=== PATIENT | male | born 2000 | race Caucasian/White ===

== ENCOUNTER 2020-02-07 04:38 | Emergency (ER) | payer SELFPAY ==
[~2020-02-07] VITALS: Ht 177.8 cm; Wt 125.0 kg
--- NOTE | 2020-02-07 05:01 | PHYS DOC ---
Past Medical History Past Medical History: No Pertinent History Past Surgical History: No Surgical History Smoking Status: Never Smoker Alcohol Use: None General Adult EDM: Chief Complaint: ABDOMINAL PAIN HPI: HPI: 19-year-old male presents [facility] department complaints of abdominal pain. Describes the pain is constant, lower abdomen and left lower quadrant. He denies any fever, nausea, vomiting. He states the pain started a couple days ago he has not had a good bowel movement x2 days. He states he tried tonight with small amounts. He did try MiraLAX [id number] x1 time however has had no relief. Nothing makes his pain worse, nothing makes his pain better. Patient has no underlying past medical history, no surgical history. He describes the pain as achy Review of Systems: Review of Systems: Constitutional: Denies fever or chills. [] Respiratory: Denies cough or shortness of breath. [] Cardiovascular: Denies chest pain or edema. [] GI: abdominal pain, no nausea, vomiting, bloody stools or diarrhea. [] Musculoskeletal: Denies back pain or joint pain. [] Neurologic: Denies headache, focal weakness or sensory changes. [] Heart Score: Risk Factors: Risk Factors: DM, Current or recent (<one month) smoker, HTN, HLP, family history of CAD, obesity. Risk Scores: Score 0 - 3: 2.5% MACE over next 6 weeks - Discharge Home Score 4 - 6: 20.3% MACE over next 6 weeks - Admit for Clinical Observation Score 7 - 10: 72.7% MACE over next 6 weeks - Early Invasive Strategies Physical Exam: PE: Constitutional: Well developed, well nourished, no acute distress, non-toxic appearance. [] Cardiovascular:Heart rate regular rhythm, no murmur [] Lungs & Thorax: Bilateral breath sounds clear to auscultation [] Abdomen: Bowel sounds normal, soft, TTP LLQ, no masses, no pulsatile masses. [] Skin: Warm, dry, no erythema, no rash. [] Extremities: No tenderness, no edema. [] Neurologic: Alert and oriented X 3, no focal deficits noted. [] Psychologic: Affect normal, judgement normal, mood normal. [] Current Patient Data: Vital Signs: Vital Signs Date Time Temp Pulse Resp B/P (MAP) Pulse Ox O2 Delivery O2 Flow Rate FiO2 02/07/20 04:49 97.8 97 20 163/74 (103) 97 Room Air 97.8 EKG: EKG: [] Radiology/Procedures: Radiology/Procedures: [] Course & Med Decision Making: Course & Med Decision Making Pertinent Labs and Imaging studies reviewed. (See chart for details) []19-year-old male presents emerge department complaints of abdominal pain. Describes the pain is constant, lower abdomen and left lower quadrant. He denies any fever, nausea, vomiting. He states the pain started a couple days ago he has not had a good bowel movement x2 days. He states he tried tonight with small amounts. He did try MiraLAX [id number] x1 time however has had no relief. Nothing makes his pain worse, nothing makes his pain better. Patient has no underlying past medical history, no surgical history. He describes the pain as achy. Labs/imaging reviewed + stool/constipation No acute findings with labs Recommend bentyl as prescribed Miralax BID until routine BM, hold for diarrhea DC home Dragon Disclaimer: Cardia Disclaimer: This electronic medical record was generated, in whole or in part, using a voice recognition dictation system. Departure Departure Impression: Primary Impression: Constipation Qualified Codes: K59.00 - Constipation, unspecified Disposition: HOME, SELF-CARE Condition: STABLE Referrals: NO PCP (PCP) Patient Instructions: Constipation, Adult, [id number] Additional Instructions: KUB with evidence of stool/constipation No acute lab findings Recommend bentyl as prescribed for pain Miralax BID until routine BM Return to the ER with worsening pain, fever, nausea with vomiting, inability to have BM Scripts Dicyclomine Hcl (DICYCLOMINE HCL) 10 Mg Capsule 1 CAP PO TID for 5 Days, #15 CAP 11 Refills Prov: SOPHIE AL MD 02/07/20 SOPHIE AL MD Feb 07, 2020 05:01
[2020-02-07 05:10] LABS: BASO % 1 % (0-3); EOS # 0.2 x10^3/uL (0.0-0.7); EOS % 2 % (0-3); HEMATOCRIT 44.8 % (39.0-53.0); HEMOGLOBIN 15.2 g/dL (13.0-17.5); LYMPH # 3.6 x10^3/uL (1.0-4.8); LYMPH % 51 % (24-48); MEAN CORPUSCULAR HEMOGLOBIN 29 pg (25-35); MEAN CORPUSCULAR HGB CONC 34 g/dL (31-37); MEAN CORPUSCULAR VOLUME 84 fL (79-100); MONO # 0.6 x10^3/uL (0.0-1.1); MONO % 8 % (0-9); NEUT # 2.7 x10^3/uL (1.8-7.7); NEUT % 38 % (31-73); PLATELET COUNT 275 x10^3/uL (140-400); RED BLOOD COUNT 5.31 x10^6/uL (4.30-5.70); RED CELL DISTRIBUTION WIDTH 13.5 % (11.5-14.5); WHITE BLOOD COUNT 7.2 x10^3/uL (4.0-11.0)
[2020-02-07 05:28] LABS: CALCIUM 8.6 mg/dL (8.5-10.1); CREATININE 1.4 mg/dL (0.7-1.3); GFR 64.6; POTASSIUM 4.9 mmol/L (3.5-5.1)
[2020-02-07 05:33] LABS: ALBUMIN 3.1 g/dL (3.4-5.0); ALBUMIN/GLOBULIN RATIO 0.6 (1.0-1.7); TOTAL PROTEIN 8.1 g/dL (6.4-8.2)
[2020-02-07] MEDS ORDERED: DICY10CA3 PO (05:38)
[2020-02-07 05:48] VITALS: BP 139/69
[2020-02-07] MEDS ORDERED: DICYCLOMINE 20 MG/2 ML VIAL. IM ONE (06:00)
--- NOTE | 2020-02-07 06:06 | RAD ---
EXAM: Supine AP view of the abdomen DATE: 02/07/2020 4:58 AM INDICATION: Abdominal pain COMPARISON: No Prior FINDINGS: No abnormal small or large bowel dilatation. Moderate colonic stool content. No abnormal soft tissue mass effect. No suspicious calcifications are seen. Evaluation for free intraperitoneal gas is limited on this supine exam. IMPRESSION: 1. No evidence for bowel obstruction. Electronically signed by: Luis Aguilar MD (02/07/2020 6:02 AM) JUHI
== END 2020-02-07 05:56 | disposition home or self-care (01) ==
LOC: ER 04:38
DX: K59.00 Constipation, unspecified (principal); R10.32 Left lower quadrant pain
CPT/HCPCS: 36415; 74018; 80053; 85025; 96372; 99284; J0500

== ENCOUNTER 2020-04-02 08:48 | Emergency (ER) | payer SELFPAY ==
[~2020-04-02] VITALS: Ht 177.8 cm; Wt 115.9 kg
[~2020-04-02 08:48] MED LIST: DICY10CA3 PO
--- NOTE | 2020-04-02 09:08 | PHYS DOC ---
Past Medical History Past Medical History: No Pertinent History Past Surgical History: No Surgical History Smoking Status: Never Smoker Alcohol Use: None General Adult EDM: Chief Complaint: ABDOMINAL PAIN HPI: HPI: Patient is a 19 year old male who presented to ER today for evaluation of epigastric abdominal pains and 2 AM last night. The pain had come and go, he was not able to sleep due to the pain, no nausea vomiting, no fever. Patient said he had this type pain one time in the past but did not seek medical attention. Patient denies any cough, no chest pain. Patient denies drinking alcohol. Patient said the pain actually improved by the time he got here. Review of Systems: Review of Systems: Constitutional: Denies fever or chills. [] Eyes: Denies change in visual acuity. [] HENT: Denies nasal congestion or sore throat. [] Respiratory: Denies cough or shortness of breath. [] Cardiovascular: Denies chest pain or edema. [] GI: Positive for abdominal pain, no nausea, vomiting, bloody stools or diarrhea. [] : Denies dysuria. [] Musculoskeletal: Denies back pain or joint pain. [] Integument: Denies rash. [] Neurologic: Denies headache, focal weakness or sensory changes. [] Endocrine: Denies polyuria or polydipsia. [] Lymphatic: Denies swollen glands. [] Psychiatric: Denies depression or anxiety. [] Heart Score: Risk Factors: Risk Factors: DM, Current or recent (<one month) smoker, HTN, HLP, family history of CAD, obesity. Risk Scores: Score 0 - 3: 2.5% MACE over next 6 weeks - Discharge Home Score 4 - 6: 20.3% MACE over next 6 weeks - Admit for Clinical Observation Score 7 - 10: 72.7% MACE over next 6 weeks - Early Invasive Strategies Allergies: Allergies: Allergies Coded Allergies Type Severity Reaction Last Updated Verified No Known Drug Allergies 02/07/20 No Physical Exam: PE: Constitutional: Well developed, well nourished, no acute distress, non-toxic appearance. [] HENT: Normocephalic, atraumatic, bilateral external ears normal, oropharynx moist, no oral exudates, nose normal. [] Eyes: PERRLA, EOMI, conjunctiva normal, no discharge. [] Neck: Normal range of motion, no tenderness, supple, no stridor. [] Cardiovascular:Heart rate regular rhythm, no murmur [] Lungs & Thorax: Bilateral breath sounds clear to auscultation [] Abdomen: Bowel sounds normal, soft, There is tenderness in epigastric area, no masses, no pulsatile masses. [] Skin: Warm, dry, no erythema, no rash. [] Back: No tenderness, no CVA tenderness. [] Extremities: No tenderness, no cyanosis, no clubbing, ROM intact, no edema. [] Neurologic: Alert and oriented X 3, normal motor function, normal sensory function, no focal deficits noted. [] Psychologic: Affect normal, judgement normal, mood normal. [] EKG: EKG: [] Radiology/Procedures: Radiology/Procedures: [][facility] [address] [place] [address] IMAGING REPORT Signed PATIENT: TERESA KIDD ACCOUNT: [id number] : 2000 LOCATION: ER AGE: 19 SEX: M EXAM STATUS: PRE ER ORD. PHYSICIAN: LOYD FLOWER DO REASON: abdominal pain since 3 am today PROCEDURE: ACUTE ABDOMEN SERIES PA chest and AP upright supine abdomen x-rays HISTORY: Abdominal pain. FINDINGS: Heart and mediastinum are unremarkable. No pulmonary opacities. No pleural effusions. No pneumoperitoneum. Mild volume of stool within the right-sided colon. No dilated bowel loops or abnormal air-fluid levels of the bowel. Bones and soft tissues are unremarkable. IMPRESSION: No acute process in the chest. No bowel obstruction evident. Mild volume of stool is present. Electronically signed by: Gómez Cao MD (04/02/2020 10:00 AM) [id number] DICTATED and SIGNED BY: GÓMEZ CAO MD DATE: 04/02/20999 Course & Med Decision Making: Course & Med Decision Making Pertinent Labs and Imaging studies reviewed. (See chart for details) [] Dragon Disclaimer: Dragon Disclaimer: This electronic medical record was generated, in whole or in part, using a voice recognition dictation system. Departure Departure Impression: Primary Impression: Gastritis Disposition: 01 HOME, SELF-CARE Condition: STABLE Referrals: NO PCP (PCP) follow up with your doctor as needed Patient Instructions: Gastritis, Adult Scripts Famotidine (PEPCID) 20 Mg Tablet 20 MG PO BID for 30 Days, #60 TAB Prov: LOYD FLOWER DO 04/02/20 Justicifation of Admission Dx: Justifications for Admission: Justification of Admission Dx: N/A LOYD FLOWER DO Apr 02, 2020 09:08
[2020-04-02 09:32] LABS: CALCIUM 8.5 mg/dL (8.5-10.1); CREATININE 0.9 mg/dL (0.7-1.3); GFR 107.6; POTASSIUM 4.4 mmol/L (3.5-5.1)
[2020-04-02 09:36] LABS: BASO % 0 % (0-3); EOS # 0.1 x10^3/uL (0.0-0.7); EOS % 2 % (0-3); HEMATOCRIT 43.9 % (39.0-53.0); HEMOGLOBIN 15.1 g/dL (13.0-17.5); LYMPH # 1.9 x10^3/uL (1.0-4.8); LYMPH % 31 % (24-48); MEAN CORPUSCULAR HEMOGLOBIN 29 pg (25-35); MEAN CORPUSCULAR HGB CONC 34 g/dL (31-37); MEAN CORPUSCULAR VOLUME 84 fL (79-100); MONO # 0.5 x10^3/uL (0.0-1.1); MONO % 8 % (0-9); NEUT # 3.6 x10^3/uL (1.8-7.7); NEUT % 59 % (31-73); PLATELET COUNT 249 x10^3/uL (140-400); RED BLOOD COUNT 5.21 x10^6/uL (4.30-5.70); RED CELL DISTRIBUTION WIDTH 13.7 % (11.5-14.5); WHITE BLOOD COUNT 6.1 x10^3/uL (4.0-11.0)
[2020-04-02 09:37] LABS: ALBUMIN/GLOBULIN RATIO 1.2 (1.0-1.7); TOTAL BILIRUBIN 0.7 mg/dL (0.2-1.0); TOTAL PROTEIN 7.4 g/dL (6.4-8.2)
--- NOTE | 2020-04-02 10:03 | RAD ---
PA chest and AP upright supine abdomen x-rays HISTORY: Abdominal pain. FINDINGS: Heart and mediastinum are unremarkable. No pulmonary opacities. No pleural effusions. No pneumoperitoneum. Mild volume of stool within the right-sided colon. No dilated bowel loops or abnormal air-fluid levels of the bowel. Bones and soft tissues are unremarkable. IMPRESSION: No acute process in the chest. No bowel obstruction evident. Mild volume of stool is present. Electronically signed by: Gómez Cao MD (04/02/2020 10:00 AM) [id number]
[2020-04-02 10:15] LABS: BILIRUBIN,URINE NEGATIVE (NEG); CLARITY,URINE CLEAR; COLOR,URINE YELLOW; NITRITE,URINE NEGATIVE (NEG); PROTEIN,URINE NEGATIVE (NEG-TRACE); UROBILINOGEN,URINE 0.2 mg/dL (0.2 mg/dL)
[2020-04-02 10:28] LABS: BACTERIA,URINE 0 /HPF (0-FEW); RBC,URINE 0 /HPF (0-2); WBC,URINE OCC /HPF (0-4)
[2020-04-02 11:23] VITALS: BP 120/68
[2020-04-02] MEDS ORDERED: FAMO-63 PO (11:27)
== END 2020-04-02 11:37 | disposition home or self-care (01) ==
LOC: ER 08:48
DX: K29.70 Gastritis, unspecified, without bleeding (principal); R10.13 Epigastric pain
CPT/HCPCS: 36415; 74022; 80053; 81001; 83690; 85025; 87086; 99285